=== PATIENT | male | born 1940 | race Caucasian/White ===

== ENCOUNTER → 2022-01-16 10:46 | Outpatient (CLI) | payer MEDICARE, SELFPAY ==
--- NOTE | ~2022-01-16 | XR_ITS ---
XR chest 2V DATE: 01/16/2022 11:39 INDICATION: Shortness of breath TECHNIQUE: 2 views COMPARISON: 07/14/2017 CT lung cancer screening examination FINDINGS: There is patchy infiltrate and/atelectasis in the left mid and both lower lung zones, left greater than right. There is moderate elevation of the right leaf of the diaphragm. Normal heart size. Aortic arch calcification. No pleural effusion or pulmonary vascular congestion or pneumothorax. Degenerative spurring of the thoracic spine. IMPRESSION: Left mid and bilateral lower lung infiltrate and/atelectasis, left greater than right Reviewed, dictated and finalized at location A.
== END ==
PROVIDERS: Visit Provider Physician Assistant
DX: R06.02 Shortness of breath (principal)
CPT/HCPCS: 71046

== ENCOUNTER → 2022-02-16 09:04 | Outpatient (CLI) | payer MEDICARE, SELFPAY ==
--- NOTE | ~2022-02-16 | XR_ITS ---
XR chest 2V DATE: 02/16/2022 09:23 INDICATION: Shortness of breath TECHNIQUE: 2 views COMPARISON: 01/16/2022 chest 2 views FINDINGS: Normal heart size. No hilar or mediastinal enlargement. There is aortic calcification. N o hilar or mediastinal enlargement. There is mild elevation of the right leaf of the diaphragm. There is mild left mid and bilateral low er lung atelectasis and/or scarring, not significant change since 01/16/2022. Degenerative spurring of the thoracic spine. Osteopenia. IMPRESSION: No significant change since 01/16/2022 Reviewed, dictated and finalized at location A.
== END ==
PROVIDERS: PCP Family Medicine; Visit Provider Physician Assistant
DX: R93.89 Abnormal findings on diagnostic imaging of other specified body structures (principal)
CPT/HCPCS: 71046